=== PATIENT | female | born 1985 | race Asian ===

== ENCOUNTER 2017-08-15 18:44 | Inpatient (IN) | payer MEDICAID ==
[~2017-08-15] VITALS: Ht 170.2 cm; Wt 55.8 kg
[2017-08-15 18:49] VITALS: Ht 170.2 cm; Wt 55.8 kg
[2017-08-15 21:11] LABS: BASOPHIL % 0.7 % (0-2); PLATELET COUNT 250 x10^3mcL (130-400)
[2017-08-15 21:13] LABS: RED CELL DISTRIBUTION WIDTH 16.7 % (11.5-14.5)
[2017-08-15 21:23] LABS: CALCIUM 8.5 mg/dL (8.5-10.1); CARBON DIOXIDE 23.3 mmol/L (21-32); CHLORIDE SERUM 108 mmol/L (98-107); CREATININE SERUM 0.6 mg/dL (0.6-1.0); GFR1 > 60 mL/min; GLUCOSE SERUM 93 mg/dL (74-106); POTASSIUM SERUM 4.3 mmol/L (3.5-5.1); SODIUM SERUM 140 mmol/L (136-145)
[2017-08-15 21:31] LABS: UA SPECIFIC GRAVITY >=1.030 (1.005-1.035); microscopic required? YES; urine erythrocyte TRACE (NEGATIVE)
[2017-08-15 21:37] LABS: ALBUMIN 3.5 g/dL (3.4-5.0); ALKALINE PHOSPHATASE 64 U/L (46-116); ALT/SGPT 18 U/L (14-59); AST/SGOT 11 U/L (15-37); BILIRUBIN TOTAL 0.2 mg/dL (0.20-1.00); FREE T4 0.73 ng/dL (0.76-1.46); TOTAL PROTEIN, SERUM 6.9 g/dL (6.4-8.2)
[2017-08-15 21:46] LABS: ERYTHROCYTE SED RATE 22 mm/hr (0-20)
[2017-08-15 21:49] LABS: C REACTIVE PROTEIN < 0.2 mg/dL (<=0.9)
[2017-08-16 01:49] VITALS: BP 97/51
[2017-08-16 02:59] LABS: T3 TOTAL 0.87 ng/mL
[2017-08-16 03:06] LABS: FREE T4 0.74 ng/dL (0.76-1.46); FREE THYROXINE INDEX 1.7 ug/dL (1.4-4.5); T4(THYROXINE) 5.4 ug/dL (4.7-13.3)
[2017-08-16 03:09] LABS: CHOLESTEROL/HDL RATIO 2.4; MAGNESIUM 2.2 mg/dL (1.8-2.4); PHOSPHOROUS 3.6 mg/dL (2.5-4.9); TOTAL IRON BINDING CAPACITY 399 ug/dL (250-450)
[2017-08-16 04:05] LABS: IRON 17 ug/dL (50-170)
[2017-08-16 05:37] VITALS: BP 98/63
[2017-08-16 08:30] VITALS: BP 80/59
[2017-08-16 14:11] VITALS: BP 94/56
[2017-08-16 16:01] LABS: AMPHETAMINE QUAL UR POSITIVE (See below)
[2017-08-16 18:45] VITALS: BP 88/46
[2017-08-16 20:52] VITALS: BP 87/51
[2017-08-17 05:33] VITALS: BP 87/46
[2017-08-17 05:42] VITALS: BP 96/55
[2017-08-17 06:09] LABS: BASOPHIL % 0.2 % (0-2); PLATELET COUNT 221 x10^3mcL (130-400)
[2017-08-17 06:21] LABS: CALCIUM 8.7 mg/dL (8.5-10.1); CARBON DIOXIDE 25.7 mmol/L (21-32); CHLORIDE SERUM 111 mmol/L (98-107); CREATININE SERUM 0.7 mg/dL (0.6-1.0); GFR1 > 60 mL/min; GLUCOSE SERUM 101 mg/dL (74-106); MAGNESIUM 2.1 mg/dL (1.8-2.4); SODIUM SERUM 146 mmol/L (136-145)
[2017-08-17 06:23] LABS: RED CELL DISTRIBUTION WIDTH 16.5 % (11.5-14.5)
[2017-08-17] MEDS ORDERED: COL100 PO (07:47)
[2017-08-17 08:41] VITALS: BP 98/55
[2017-08-17 10:40] VITALS: BP 98/55
[2017-08-17 13:36] VITALS: BP 111/60
== END 2017-08-17 17:45 | disposition home or self-care (01) | DRG 347 ==
LOC: ED 18:44 → DU 08-16 00:27
PROVIDERS: Emergency Medicine; General Practice
DX: M53.3 Sacrococcygeal disorders, not elsewhere classified (principal); D50.9 Iron deficiency anemia, unspecified; F10.10 Alcohol abuse, uncomplicated; F32.9 Major depressive disorder, single episode, unspecified; F17.210 Nicotine dependence, cigarettes, uncomplicated; K59.09 Other constipation; Y90.9 Presence of alcohol in blood, level not specified; Z80.3 Family history of malignant neoplasm of breast; Z68.1 Body mass index [BMI] 19.9 or less, adult
CPT/HCPCS: 83880; 84439; J1100; J2270; J7030; Q0092; Q9967

== ENCOUNTER 2019-01-10 21:08 | Emergency (ER) | payer MEDICAID ==
[~2019-01-10] VITALS: Ht 170.2 cm; Wt 76.2 kg
[~2019-01-10 21:08] MED LIST: COL100 PO
[2019-01-10 21:14] VITALS: Ht 170.2 cm; Wt 76.2 kg
[2019-01-10 22:00] LABS: BASOPHIL % 0.7 % (0-2); PLATELET COUNT 296 x10^3mcL (130-400); RED CELL DISTRIBUTION WIDTH 14.4 % (11.5-14.5)
[2019-01-10 22:09] LABS: CALCIUM 8.6 mg/dL (8.5-10.1); CARBON DIOXIDE 21.5 mmol/L (21-32); CHLORIDE SERUM 114 mmol/L (98-107); CREATININE SERUM 0.7 mg/dL (0.6-1.0); GFR1 > 60 mL/min; GLUCOSE SERUM 86 mg/dL (74-106); POTASSIUM SERUM 3.5 mmol/L (3.5-5.1); SODIUM SERUM 150 mmol/L (136-145)
[2019-01-10 22:13] LABS: ALBUMIN 3.7 g/dL (3.4-5.0); ALKALINE PHOSPHATASE 71 U/L (46-116); ALT/SGPT 20 U/L (14-59); AMYLASE 54 U/L (25-115); AST/SGOT 12 U/L (15-37); BILIRUBIN TOTAL 0.1 mg/dL (0.20-1.00); LIPASE 91 IU/L (73-393); TOTAL PROTEIN, SERUM 7.5 g/dL (6.4-8.2)
[2019-01-11 01:26] VITALS: BP 98/47
== END 2019-01-11 01:26 | disposition home or self-care (01) ==
LOC: ED 21:08
PROVIDERS: Emergency Medicine
DX: R10.84 Generalized abdominal pain (principal); R11.10 Vomiting, unspecified; R19.7 Diarrhea, unspecified
CPT/HCPCS: J0780; J1200; J1885; J2405; J3010; J7030